=== PATIENT | male | born 1940 | race Native Hawaiian/Other Pacific Islander ===

== ENCOUNTER 2017-06-27 07:56 | Emergency (ER) | payer OTHER ==
[~2017-06-27] VITALS: Ht 172.7 cm; Wt 83.0 kg
[2017-06-27 07:59] VITALS: BP 154/126; PULSE 113; RESP 17; O2SAT 98
[2017-06-27] MEDS ORDERED: DILT120C9 PO (08:12)
[2017-06-27] MEDS ORDERED: APIX5TAB PO (08:12)
[2017-06-27] MEDS ORDERED: SODIUM CHLORIDE 0.9% FLUSH 10 ML FLUSH IVF PRN (08:15)
[2017-06-27 08:16] VITALS: PULSE 89; RESP 16; O2SAT 99
[2017-06-27 08:30] VITALS: BP 124/72; PULSE 96; RESP 16; O2SAT 99
[2017-06-27 08:36] LABS: AUTOMATED NEUTROPHIL # 2.7 TH/MM3 (1.8-7.7); BASOPHIL # 0.1 TH/MM3 (0-0.2); BASOPHIL % 0.9 % (0.0-2.0); EOSINOPHIL # 0.5 TH/MM3 (0-0.4); EOSINOPHIL % 8.5 % (0.0-4.0); HEMOGLOBIN 13.7 GM/DL (13.0-17.0); LYMPH % 34.5 % (9.0-44.0); LYMPHOCYTE # 2.1 TH/MM3 (1.0-4.8); MEAN CELL VOLUME 90.7 FL (80.0-100.0); MEAN CORPUSCULAR HGB CONC 34.2 % (32.0-36.0); MEAN PLATELET VOLUME 8.6 FL (7.0-11.0); MONO % 11.4 % (0.0-8.0); MONOCYTE # 0.7 TH/MM3 (0-0.9); NEUT % 44.7 % (16.0-70.0); PLATELET COUNT 239 TH/MM3 (150-450); RED BLOOD COUNT 4.41 MIL/MM3 (4.50-5.90); RED CELL DISTRIBUTION WIDTH 12.7 % (11.6-17.2); WHITE BLOOD COUNT 6.1 TH/MM3 (4.0-11.0)
[2017-06-27 08:47] LABS: INTERNATIONAL NORMALIZED RATIO 1.1 RATIO
[2017-06-27 08:54] VITALS: RESP 16; O2SAT 98
[2017-06-27 08:54] LABS: ALBUMIN 3.7 GM/DL (3.4-5.0); ALT (GPT) 21 U/L (12-78); AST (GOT) 25 U/L (15-37); BICARBONATE 24.2 MEQ/L (21.0-32.0); BLOOD UREA NITROGEN 15 MG/DL (7-18); CALCIUM 8.7 MG/DL (8.5-10.1); CHLORIDE 106 MEQ/L (98-107); CREATININE 1.08 MG/DL (0.60-1.30); GLOMERULAR FILTRATION RATE 67 ML/MIN (>89); GLUCOSE,RANDOM 130 MG/DL (74-106); MAGNESIUM 1.8 MG/DL (1.5-2.5); SODIUM (NA) 140 MEQ/L (136-145)
[2017-06-27 08:57] LABS: ALKALINE PHOSPHATASE 68 U/L (45-117); TOTAL BILIRUBIN ADULT 0.4 MG/DL (0.2-1.0); TOTAL PROTEIN 8.3 GM/DL (6.4-8.2); TROPONIN I LESS THAN 0.02 NG/ML (0.02-0.05)
--- NOTE | 2017-06-27 08:59 | RADRPT ---
EXAM DATE/TIME: 06/27/2017 08:27 [place] COMPARISON: No previous studies available for comparison. INDICATIONS : Palpitations. Tachycardia with sweating. MEDICAL HISTORY : Cardiovascular disease. SURGICAL HISTORY : None. ENCOUNTER: Initial ACUITY: 1 day PAIN SCORE: 0/10 LOCATION: Bilateral chest FINDINGS: Subtle subcentimeter nodular density overlying the right upper lobe. No focal infiltrate or effusion. Cardiac contours are satisfactory. Mild degenerative changes in the spine. CONCLUSION: Possible right lung nodule. Recommend CT chest for further evaluation. Miguel Moreland MD on June 27, 2017 at 8:49 Board Certified Radiologist. This report was verified electronically.
--- NOTE | 2017-06-27 09:10 | PD ---
HPI Chief Complaint: Cardiac Complaint Time Seen by Provider: 08:40 Travel History International Travel<30 days: No Contact w/Intl Traveler<30days: No Traveled to known affect area: No History of Present Illness HPI 77-year-old male patient with history of atrial fibrillation, apparently following up with [facility], has recently been on Holter monitor, was found to have several pauses and had been taken off of his Cardizem according to his daughter, and he comes in to the ER today because he started having palpitations this morning. He denies any chest pains, shortness of breath, vomiting, abdominal pains, or any other issues. He has been eating and drinking normally. Modifying Factors: None Associated Signs & Symptoms: Palpitations Risk Factors: History of atrial fibrillation PFSH Past Medical History Anemia: Yes Arthritis: Yes (osteoporosis) Atrial Fibrillation: Yes Heart Rhythm Problems: Yes Glaucoma: Yes Gout: Yes Influenza Vaccination: Yes Social History Alcohol Use: Yes (occasionally) Tobacco Use: No Substance Use: No Allergies-Medications (Allergen,Severity, Reaction): Coded Allergies: No Known Allergies (Unverified , 06/27/17) Reported Meds & Prescriptions Reported Meds & Active Scripts Active Reported Diltiazem ER 12 HR (Diltiazem HCl) 120 Mg Caper 120 Mg PO DAILY Eliquis (Apixaban) 5 Mg Tab 5 Mg PO BID Review of Systems Except as stated in HPI: all other systems reviewed are Neg Physical Exam Narrative GENERAL: Well-developed elderly [place] male patient currently in mild distress. Awake and oriented 3. SKIN: Focused skin assessment warm/dry. HEAD: Atraumatic. Normocephalic. EYES: Pupils equal and round. No scleral icterus. No injection or drainage. ENT: No nasal bleeding or discharge. Mucous membranes pink and moist. NECK: Trachea midline. No JVD. CARDIOVASCULAR: Irregularly irregular. Pulses were present and equal bilaterally. RESPIRATORY: No accessory muscle use. Clear to auscultation. Breath sounds equal bilaterally. GASTROINTESTINAL: Abdomen soft, non-tender, nondistended. Hepatic and splenic margins not palpable. MUSCULOSKELETAL: No obvious deformities. No clubbing. No cyanosis. No edema. NEUROLOGICAL: Awake and alert. No obvious cranial nerve deficits. Motor grossly within normal limits. Normal speech. PSYCHIATRIC: Appropriate mood and affect; insight and judgment normal. Data Data Last Documented VS Vital Signs Date Time Temp Pulse Resp B/P (MAP) Pulse Ox O2 Delivery O2 Flow Rate FiO2 06/27/17 08:54 16 98 Room Air 06/27/17 08:16 89 Orders Orders Ckmb (Isoenzyme) Profile (06/27/17 08:12) Complete Blood Count With Diff (06/27/17 08:12) Comprehensive Metabolic Panel (06/27/17 08:12) Magnesium (Mg) (06/27/17 08:12) Prothrombin Time / Inr (Pt) (06/27/17 08:12) Act Partial Throm Time (Ptt) (06/27/17 08:12) Troponin I (06/27/17 08:12) Ecg Monitoring (06/27/17 08:12) Bilateral Bp Monitoring (06/27/17 08:12) Iv Access Insert/Monitor (06/27/17 08:12) Oximetry (06/27/17 08:12) Oxygen Administration (06/27/17 08:12) Sodium Chloride 0.9% Flush (Ns Flush) (06/27/17 08:15) Chest, Pa & Lat (06/27/17 08:12) Electrocardiogram (06/27/17 08:12) CKMB (06/27/17 08:20) CKMB% (06/27/17 08:20) Ed Discharge Order (06/27/17 10:45) Labs Laboratory Tests Test 06/27/17 08:20 White Blood Count 6.1 TH/MM3 Red Blood Count 4.41 MIL/MM3 Hemoglobin 13.7 GM/DL Hematocrit 40.0 % Mean Corpuscular Volume 90.7 FL Mean Corpuscular Hemoglobin 31.0 PG Mean Corpuscular Hemoglobin Concent 34.2 % Red Cell Distribution Width 12.7 % Platelet Count 239 TH/MM3 Mean Platelet Volume 8.6 FL Neutrophils (%) (Auto) 44.7 % Lymphocytes (%) (Auto) 34.5 % Monocytes (%) (Auto) 11.4 % Eosinophils (%) (Auto) 8.5 % Basophils (%) (Auto) 0.9 % Neutrophils # (Auto) 2.7 TH/MM3 Lymphocytes # (Auto) 2.1 TH/MM3 Monocytes # (Auto) 0.7 TH/MM3 Eosinophils # (Auto) 0.5 TH/MM3 Basophils # (Auto) 0.1 TH/MM3 CBC Comment DIFF FINAL Differential Comment Prothrombin Time 11.0 SEC Prothromb Time International Ratio 1.1 RATIO Activated Partial Thromboplast Time 29.3 SEC Blood Urea Nitrogen 15 MG/DL Creatinine 1.08 MG/DL Random Glucose 130 MG/DL Total Protein 8.3 GM/DL Albumin 3.7 GM/DL Calcium Level 8.7 MG/DL Magnesium Level 1.8 MG/DL Alkaline Phosphatase 68 U/L Aspartate Amino Transf (AST/SGOT) 25 U/L Alanine Aminotransferase (ALT/SGPT) 21 U/L Total Bilirubin 0.4 MG/DL Sodium Level 140 MEQ/L Potassium Level 4.1 MEQ/L Chloride Level 106 MEQ/L Carbon Dioxide Level 24.2 MEQ/L Anion Gap 10 MEQ/L Estimat Glomerular Filtration Rate 67 ML/MIN Total Creatine Kinase 185 U/L Creatine Kinase MB 3.3 NG/ML Troponin I LESS THAN 0.02 NG/ML MDM Medical Decision Making Medical Screen Exam Complete: Yes Emergency Medical Condition: Yes Medical Record Reviewed: Yes Interpretation(s) EKG shows A. fib at a rate of 93 bpm with no signs of acute ST elevations or depressions. Laboratory Tests Test 06/27/17 08:20 Red Blood Count 4.41 MIL/MM3 (4.50-5.90) Monocytes (%) (Auto) 11.4 % (0.0-8.0) Eosinophils (%) (Auto) 8.5 % (0.0-4.0) Eosinophils # (Auto) 0.5 TH/MM3 (0-0.4) Random Glucose 130 MG/DL (74-106) Total Protein 8.3 GM/DL (6.4-8.2) Estimat Glomerular Filtration Rate 67 ML/MIN (>89) Troponin I LESS THAN 0.02 NG/ML Last 24 hours Impressions Chest X-Ray 06/27/17 0812 Signed Impressions: Service Date/Time: Tuesday, June 27, 2017 08:27 - CONCLUSION: Possible right lung nodule. Recommend CT chest for further evaluation. Miguel Moreland MD Differential Diagnosis Atrial fibrillation versus dehydration versus metabolic issues Narrative Course Lab work was fairly unremarkable. EKG shows A. fib at a rate of 90 bpm. No signs of acute ST changes. 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 Case was also discussed with Dr. Doris Marin who is the patient's primary care doctor and he states he will follow-up with the patient. Return for any worsening in symptoms as needed. The plan was discussed with patient he states understanding. Diagnosis Primary Impression: Atrial fibrillation Referrals: Murtaza Ann MD Disposition: 01 DISCHARGE HOME Condition: Stable Juan M Romero MD Jun 27, 2017 09:10
[2017-06-27 10:30] VITALS: BP 121/76; PULSE 82; RESP 18; O2SAT 99
--- NOTE | 2017-06-27 21:35 | EKG ---
Date Performed: 06/27/2017 Time Performed: 08:13:34 PTAGE: 77 years EKG: ATRIAL FIBRILLATION When compared to previous tracing, the patient is now in atrial Fibrill ation. ABNORMAL RHYTHM ECG PREVIOUS TRACING : 04/26/1996 13.19 DOCTOR: Erin Harrell Interpretating Date/Time 06/27/2017 21:33:36
== END 2017-06-27 11:11 | disposition home or self-care (01) ==
LOC: NEPE 07:56
DX: I48.91 Unspecified atrial fibrillation (principal); R94.31 Abnormal electrocardiogram [ECG] [EKG]; D64.9 Anemia, unspecified; M81.0 Age-related osteoporosis without current pathological fracture; M10.9 Gout, unspecified; H40.9 Unspecified glaucoma; Z79.899 Other long term (current) drug therapy
CPT/HCPCS: 71046; 80053; 82550; 82552; 83735; 84484; 85025; 85610; 85730; 93005; 99285